=== PATIENT | female | born 1970 | race Caucasian/White ===

== ENCOUNTER 2016-05-29 01:32 | Emergency (ER) | payer SELFPAY ==
[~2016-05-29] VITALS: Ht 157.5 cm; Wt 113.4 kg
[2016-05-29] MEDS ORDERED: cloNIDine HCL 0.1 MG TAB PO ONE (02:00)
[2016-05-29] MEDS ORDERED: ACETAMINOPHEN 325 MG TAB PO ONE (02:00)
[2016-05-29 02:05] LABS: Basophils # (auto) 0.1 uL; Basophils % (auto) 0.7 % (0.0-2.0); Eosinophils # (auto) 0.5 uL; Eosinophils % (auto) 4.8 % (0.0-7.0); Hematocrit 41.7 % (36.0-46.0); Hemoglobin 13.9 g/dL (12.2-16.2); Lymphocytes # (auto) 3.8 uL; Lymphocytes % (auto) 35.8 % (10.0-50.0); Mean Corpuscular Hemoglobin 30.6 pg (28.0-32.0); Mean Corpuscular Hgb Conc. 33.2 g/dL (32.0-36.0); Mean Corpuscular Volume 92.1 fL (80.0-100.0); Mean Platelet Volume 8.2 fL (7.4-10.4); Monocytes # (auto) 0.6 uL; Monocytes % (auto) 5.8 % (0.0-12.0); Neutrophils # (auto) 5.5 uL; Neutrophils % (auto) 52.9 % (37.0-80.0); Platelet Count (auto) 273 10^3/uL (140-450); Red Cell Distribution Width 14.7 % (11.6-16.0); White Blood Cell 10.5 10^3/uL (4.4-10.8)
[2016-05-29 02:24] LABS: INR 0.94 (0.9-1.15); Partial Thromboplastin Time 25.2 sec (22.64-33.71); Prothrombin Time 10.2 sec (9.37-12.3)
[2016-05-29 02:26] LABS: B-Type Natriuretic Peptide 9.5 pg/mL (0-100); Temperature: 21.1 C (20.0-25.0)
[2016-05-29 02:29] LABS: Albumin 3.3 g/dL (3.4-5.0); Alkaline Phosphatase 66 U/L (45-117); Anion Gap 9 (5-15); Aspartate Aminotransferase 12 U/L (15-37); BUN/Creatinine Ratio 15.6; Bilirubin, Total 0.2 mg/dL (0.2-1.0); Blood Urea Nitrogen 14 mg/dL (7-18); Calcium 8.1 mg/dL (8.5-10.1); Carbon Dioxide 27 mmol/L (21-32); Chloride 107 mmol/L (98-107); GFR African American 87 mL/min; GFR Non-African American 72 mL/min; Glucose 118 mg/dL (74-106); Magnesium 1.8 mg/dL (1.6-2.6); Potassium 3.8 mmol/L (3.5-5.1); Sodium 143 mmol/L (136-145)
[2016-05-29 07:11] LABS: Urine RBC None Seen /hpf (0 - 4)
[2016-05-29 07:31] LABS: Urine Bilirubin Negative (Negative); Urine Blood Negative /uL (Negative); Urine Color Yellow (Yellow); Urine Glucose Normal (Normal); Urine Ketone Negative (Negative); Urine Nitrite Negative (Negative); Urine Squamous Epithelial Cell FEW /hpf (<5); Urine Urobilinogen Normal (Negative)
[2016-05-29] MEDS ORDERED: IOHEXOL 300 MG/ML 100ML BOTTLE IJ ONE (07:33)
[2016-05-29] MEDS: PROMETHAZINE HCL 25 MG/ML 1ML IV ONE ×2 (08:44→08:50)
[2016-05-29] MEDS ORDERED: NALBUPHINE HCL 10 MG/1ml INJECTION IV ONE (08:45)
[2016-05-29] MEDS ORDERED: ONDANSETRON HCL 4 MG/2 ML VIAL IV ONE (09:00)
[2016-05-29 10:17] VITALS: BP 125/57
== END 2016-05-29 12:03 | disposition home or self-care (01) ==
LOC: ER 01:36
DX: I10 Essential (primary) hypertension (principal); G40.909 Epilepsy, unspecified, not intractable, without status epilepticus; F41.9 Anxiety disorder, unspecified; E66.01 Morbid (severe) obesity due to excess calories; Z68.42 Body mass index [BMI] 45.0-49.9, adult; E46 Unspecified protein-calorie malnutrition
CPT/HCPCS: 36415; 70450; 71010; 74177; 80053; 81001; 82533; 83735; 83880; 84484; 85025; 85379; 85610; 85730; 93005; 96374; 96375; 99285; J2300; J2405; Q9967

== ENCOUNTER 2019-12-03 09:13 | Emergency (ER) | payer MEDICAID, OTHER ==
[~2019-12-03] VITALS: Ht 157.5 cm; Wt 81.6 kg
[2019-12-03] MEDS ORDERED: ASPirin 81 mg TAB PO ONE (09:30)
[2019-12-03] MEDS ORDERED: LORazepam 2MG/ML-1ML VIAL IV ONE (09:30)
[2019-12-03] MEDS ORDERED: SODIUM CHLORIDE 0.9% 1,000 ML IV ONE ×2 (09:30)
[2019-12-03] MEDS ORDERED: cloNIDine HCL 0.1 MG TAB PO ONE (09:30)
[2019-12-03] MEDS ORDERED: LORazepam 0.5 MG TAB PO ONE (09:45)
[2019-12-03] MEDS ORDERED: KETOROLAC TROMETH 60MG/2ML VIAL IM ONE (12:15)
[2019-12-03] MEDS ORDERED: KETOROLAC TROMETH 30 MG/ML 1ML VIAL IV ONE (12:15)
[2019-12-03 12:50] VITALS: BP 132/75
== END 2019-12-03 12:30 | disposition home or self-care (01) ==
LOC: ER 09:13
DX: G43.909 Migraine, unspecified, not intractable, without status migrainosus (principal); I10 Essential (primary) hypertension; M54.12 Radiculopathy, cervical region; F41.9 Anxiety disorder, unspecified; Z88.6 Allergy status to analgesic agent
CPT/HCPCS: 70450; 71045; 72125; 93005; 96372; 99285; J1885